=== PATIENT | female | born 1995 | race Caucasian/White ===

== ENCOUNTER 2019-04-23 07:49 | Emergency (ER) | payer OTHER ==
[~2019-04-23] VITALS: Ht 157.5 cm; Wt 99.0 kg
[2019-04-23] MEDS ORDERED: SODIUM CHLORIDE 0.9% 1,000 ML IV ONE (08:40)
[2019-04-23] MEDS ORDERED: FAMOTIDINE 20MG/2ML VIAL IV STA (08:40)
[2019-04-23] MEDS ORDERED: KETOROLAC 30MG/ML VIAL IV STA (08:40)
[2019-04-23] MEDS ORDERED: ONDANSETRON HCL 4MG/2ML INJ IV STA (08:40)
[2019-04-23 08:51] LABS: CLARITY URINE CLOUDY (CLEAR); COLOR URINE DARK YELLOW (YELLOW); KETONES URINE TRACE (NEGATIVE); LEUKOCYTE ESTERASE URINE 2+ (NEGATIVE); NITRITE URINE NEGATIVE (NEGATIVE); OCCULT BLOOD URINE 3+ (NEGATIVE); PROTEIN URINE 1+ (NEGATIVE); SPECIFIC GRAVITY URINE 1.027 (1.005-1.030)
[2019-04-23 09:16] LABS: HEMATOCRIT. 43.6 % (36.0-48.0); HEMOGLOBIN. 14.8 g/dL (12.0-16.0); MEAN CORPUSCULAR HEMOGLOBIN 29.6 pg (28.0-32.0); MEAN CORPUSCULAR VOLUME 87.3 fL (81.0-99.0); MEAN PLATELET VOLUME 8.6 fl (7.4-10.4); PLATELET 277 x1000/uL (130-400); RED CELL DISTRIBUTION WIDTH 13.1 % (11.6-14.6)
[2019-04-23 09:37] LABS: CHLORIDE 107 mEq/L (98-107)
[2019-04-23 10:15] LABS: PLATELET ESTIMATE NORMAL
[2019-04-23 12:26] VITALS: BP 110/55
== END 2019-04-23 12:28 | disposition home or self-care (01) ==
LOC: ER 07:49
DX: K52.9 Noninfective gastroenteritis and colitis, unspecified (principal); N39.0 Urinary tract infection, site not specified; Z98.1 Arthrodesis status; Z90.49 Acquired absence of other specified parts of digestive tract
CPT/HCPCS: 36415; 80053; 81003; 81025; 83690; 85025; 87086; 96361; 96374; 96375; 99283; J1885; J2405; J3490; J7030